=== PATIENT | female | born 1975 | race Caucasian/White ===

== ENCOUNTER 2016-11-18 09:02 | Outpatient (CLI) ==
[2016-05-15 18:20] VITALS: BMI 25.0
[2016-11-18 09:12] LABS: BASOPHILS % (AUTO) 0.6 % (0.0-3.0); EOSINOPHILS # (AUTO) 0.2 K/ul (0.0-0.7); EOSINOPHILS % (AUTO) 2.3 % (0.0-7.0); HEMATOCRIT 38.7 % (37.0-47.0); HEMOGLOBIN 12.9 g/dl (12.0-16.0); IMMATURE GRANULOCYTE % (AUTO) 0.3 % (0.0-5.0); LYMPHOCYTES # (AUTO) 1.3 K/uL (0.60-3.4); LYMPHOCYTES % (AUTO) 19.4 (10.0-50.0); MEAN CORPUSCULAR HEMOGLOBIN 29.9 pg (27.0-31.0); MEAN CORPUSCULAR HGB CONC 33.3 (31.8-35.4); MEAN CORPUSCULAR VOLUME 89.6 fl (81.0-99.0); MONOCYTES # (AUTO) 0.4 K/uL (0.4-2.0); MONOCYTES % (AUTO) 6.6 (0-10); NEUTROPHILS # (AUTO) 4.6 K/ul (2.0-6.9); NEUTROPHILS % (AUTO) 70.8; PLATELET COUNT 242 10^3/uL (140-440); RED BLOOD COUNT 4.32 10^6/ul (4.20-5.40); WHITE BLOOD COUNT 6.54 K/ul (4.6-10.2)
[2016-11-18 09:55] LABS: ALBUMIN/GLOBULIN RATIO 1.29; ANION GAP 14.9; BILIRUBIN,TOTAL 0.6 mg/dL (0.00-1.20); BUN/CREATININE RATIO 7.96; CALCIUM 10.1 mg/dL (8.2-10.2); CHOL/HDL RATIO 3.8 (4.5-5.5); CREATININE 1.13 mg/dL (0.60-1.30); POTASSIUM 4.9 mmol/L (3.5-5.10); TOTAL PROTEIN 7.1 g/dL (6.4-8.2)
--- NOTE | 2016-11-27 12:22 | MAMMO ---
EXAM: Digital screening mammogram HISTORY: Screening COMPARISON: 01/26/2014 FINDINGS: Digital MLO and CC views of the right and left breast were performed. The breast tissue is heterogeneously dense, which could obscure small masses. Biopsy clip present on the left. There i s no evidence for mass, asymmetry, distortion, or suspicious calcifications in either breast. IMPRESSION: 1. No evidence of malignancy in the right or left breast. 2. Annual screening mammogram is recommended in one year. BIRADS category 1, negative examination
== END 2016-11-18 09:03 | disposition home or self-care (01) ==
LOC: RAD 09:02
PROVIDERS: ATTEND Nurse Practitioner Family
DX: Z12.31 Encounter for screening mammogram for malignant neoplasm of breast (principal); Z79.899 Other long term (current) drug therapy
CPT/HCPCS: 36415; 80053; 80061; 84443; 85025

== ENCOUNTER 2017-07-05 14:46 | Emergency (ER) | payer OTHER ==
[2017-07-05 14:50] VITALS: BP 159/62; TEMP 99.5; BMI 24.9
--- NOTE | 2017-07-05 15:24 | ED.PDOC ---
General ED Provider: Dr. AIDA MONTIEL Chief Complaint: Cough Stated Complaint: Frequent ORAL THERAPIST cough x 1 week. No fever or chills. No GI or symptoms. Right shoulder moderately tender anteromedially, hurting with cough x 3 days. No other symptoms. Time Seen by Physician: 15:10 Mode of Arrival: Walk-In Information Source: Patient Exam Limitations: No limitations Primary Care Provider: VERONICA GRUBER Nursing and Triage Documentation Reviewed and Agree: Yes Respiratory Complaint Exam - Respiratory Complaint/Exam Symptoms Are: Still present Timing: Constant Initial Severity: Moderate Current Severity: Moderate Location: Chest Character: Reports: Non-productive cough Aggravating: Reports: Exertion Alleviating: Reports: None Associated Signs and Symptoms: Reports: Chest pain (no actual chest pain, just in right anteromedial shoulder with cough) History of Healthcare-Acquired Pneumonia: No Related Surgical History: Reports: None Pulmonary Embolism Risk Factors: None Cardiac Risk Factors: Reports: None Pseudomonas Risk Factors: Reports: None Tuberculosis Risk Factors: Reports: None Status Asthmaticus Risk Factors: Reports: None Home Oxygen Use: No Recent Stress Test: No Recent Echo/LV Function: No Current Antibiotic Use: No Current Asthma Medication Use: No Respiratory Distress: None Inadequate Respiratory Effort: No Dysphagia Present: No Stridor Present: No JVD Present: No Accessory Muscle Use: No Retractions: Not Present Diminished Breath Sounds: No Sinus Tenderness: None Grunting Respirations: No Kussmaul Respirations: No Differential Diagnoses: Pneumonia, Bronchitis, URI, Lower Resp. Infection Quality Indicators For Pneumonia: SpO2 assessed, Vital signs, Mental status assessed Review of Systems - Review Of Systems Constitutional: Reports: No symptoms Eyes: Reports: No symptoms Ears, Nose, Mouth, Throat: Reports: No symptoms Respiratory: Reports: Cough Cardiac: Reports: No symptoms GI: Reports: No symptoms : Reports: No symptoms Musculoskeletal: Reports: Muscle pain (of right anteromedial shoulder) Skin: Reports: No symptoms Neurological: Reports: No symptoms All Other Systems: Reviewed and Negative Past Medical History - Past Medical History Endocrine: Reports: Dyslipidemia Cardiovascular: Reports: Hypertension Respiratory: Reports: None Hematological: Reports: None Gastrointestinal: Reports: None Genitourinary: Reports: None Neuro/Psych: Reports: Anxiety, PTSD, Other (CUTTER_ worse past few days multiple cuts left ant thigh, has discussed coping with counsellor) Musculoskeletal: Reports: None Cancer: Reports: None Last Menstrual Period: 06/15/17 Other Pertinent Past Medical History: cce ptsd chol anx - Surgical History General Surgical History: Reports: ( X 2,), Cholecystectomy - Family History Family History: Reports: Unknown - Social History Smoking Status: Never smoker Hx Substance Use: No Alcohol Screening: Occasionally Lives: Alone - Immunizations Tetanus Shot up to Date: Yes Influenza Vaccine within 12 Months: No Pneumococcal Vaccine up to Date: No Physical Exam - Physical Exam Appearance: Well-appearing, No pain distress, Well-nourished Ill-appearing: None Pain Distress: None Eyes: JOANIE, EOMI, Conjunctiva clear ENT: Nose normal, Oropharynx normal, TMs Occluded (TMs harmon and dull) Neck: Supple Respiratory: Airway patent, Breath sounds clear, Breath sounds equal, Respirations nonlabored Cardiovascular: RRR, Pulses normal, No rub, No murmur GI/: Soft, Nontender, No masses, Bowel sounds normal, No Organomegaly Musculoskeletal: Normal strength (right anteromedial shoulder is mildly tender to palpation, no change with ROM of right shoulder), ROM intact, No edema, No calf tenderness Skin: Warm, Dry, Normal color Neurological: Sensation intact, Motor intact, Reflexes intact, Cranial nerves intact, Alert, Oriented Psychiatric: Affect appropriate, Mood appropriate Critical Care Note - Critical Care Note Total Time (mins): 0 Course - Course Vital Signs: Temp Pulse Resp BP Pulse Ox 07/05/17 14:46 99.5 F 79 22 159/62 H 98 Departure - Departure Time of Disposition: 15:31 Disposition: HOME SELF-CARE Discharge Problem: Bronchitis Instructions: Acute Bronchitis (ED) Condition: Good Pt referred to PMD for follow-up: No (See PCP if worsen or no better in 3 days) Allergies/Adverse Reactions: Allergies tramadol HCl [From [facility]] Adverse Reaction (Verified 07/05/17 14:52) ITCHING/HIVES Home Medications: Ambulatory Orders Bupropion HCl [Bupropion Xl] 300 mg PO DAILY 11/14/16 Lamotrigine [Lamictal] 100 mg PO BEDTIME 11/14/16 Azithromycin [Zithromax] 500 mg PO DAILY #5 tablet 07/05/17 Dextroamphetamine/Amphetamine [Adderall 20 mg Tablet] 1 tab PO DAILY 07/05/17 Diazepam 5 mg PO DAILY 07/05/17 Guaifenesin/Codeine Phosphate [Robitussin AC Syrup] 5 ml PO Q4H PRN #4 oz Hydroxyzine HCl 1 tab PO WEEKLY 07/05/17 Norethindrone-E.estradiol-Iron [Microgestin Fe 1-20 Tablet] 1 tab PO DAILY 07/05 Disposition Discussed With: Patient
== END 2017-07-05 15:43 | disposition home or self-care (01) ==
LOC: ED 14:46
DX: J20.9 Acute bronchitis, unspecified (principal)
CPT/HCPCS: 99282